=== PATIENT | female | born 1960 | race Caucasian/White ===

== ENCOUNTER → 2025-03-01 08:58 | Outpatient (REF) | payer MEDICARE, OTHER, SELFPAY ==
[2025-03-01 14:19] LABS: Blood Urea Nitrogen 14 mg/dl (7-17); Calcium 9.6 mg/dl (8.4-10.2); Carbon Dioxide 28 mmol/L (22-30); Chloride 99 mmol/L (98-107); Glucose 100 mg/dl (70-99); Potassium 4.2 mmol/L (3.5-5.1); Sodium 135 mmol/L (135-145); eGFR > 60.00
== END ==
LOC: HWLAB 08:58
DX: Z01.818 Encounter for other preprocedural examination (principal)
CPT/HCPCS: 36415; 80048

== ENCOUNTER → 2025-03-06 11:42 | Outpatient (REF) | payer MEDICARE, OTHER, SELFPAY | LOC: RAD 11:42 | DX: H93.A9 Pulsatile tinnitus, unspecified ear (principal) | CPT/HCPCS: 70496; 70498; Q9967 ==

== ENCOUNTER → 2025-03-18 10:08 | Outpatient (REF) | payer MEDICARE, OTHER, SELFPAY | LOC: RAD 10:08 | PROVIDERS: ATTENDING PHYSICIAN Internal Medicine | DX: C50.112 Malignant neoplasm of central portion of left female breast (principal) | CPT/HCPCS: 78306; A9503 ==

== ENCOUNTER → 2025-03-21 07:01 | Outpatient (REF) | payer MEDICARE, OTHER, SELFPAY ==
[2025-03-21 09:37] LABS: Hematocrit 38.8 % (37.0-47.0); Hemoglobin 13.1 g/dL (12.0-16.0); Mean Corp Hgb Conc. 33.8 g/dL (33.0-37.0); Mean Corpuscular Volume 84.5 fL (81.0-99.0); Nucleated Red Blood Cells % 0 %; Platelet Count 310 10^3/uL (130-400); Red Cell Dist. Width 12.9 % (11.5-14.5)
[2025-03-21 09:47] LABS: INR 0.89; PT 12.6 Sec (11.4-14.6)
[2025-03-21 10:51] LABS: ALT (SGPT) 18 U/L (0-35); AST (SGOT) 19 U/L (14-36); Albumin 4.4 g/dl (3.5-5.0); Alkaline Phosphatase 81 U/L (38-126); Blood Urea Nitrogen 18 mg/dl (7-17); Calcium 9.9 mg/dl (8.4-10.2); Carbon Dioxide 28 mmol/L (22-30); Chloride 99 mmol/L (98-107); Glucose 107 mg/dl (70-99); LDH 139 U/L (120-246); Potassium 4.7 mmol/L (3.5-5.1); Sodium 134 mmol/L (135-145); Total Protein 7.8 g/dl (6.3-8.2); eGFR > 60.00
== END ==
LOC: HWLAB 07:01
PROVIDERS: ATTENDING PHYSICIAN Internal Medicine
DX: D47.2 Monoclonal gammopathy (principal); D68.9 Coagulation defect, unspecified
CPT/HCPCS: 36415; 80053; 82784; 83521; 83615; 84155; 84165; 85025; 85610; 86334